=== PATIENT | female | born 1985 | race Two or more races ===

== ENCOUNTER 2020-01-04 15:15 | Emergency (ER) | payer MEDICAID ==
[~2020-01-04] VITALS: Ht 154.9 cm; Wt 68.0 kg
[~2020-01-04 15:15] MED LIST: NAPR-232 PO
[2020-01-04 16:01] LABS: BASOPHILS # (AUTO) 0.1 X10'3 (0-0.2); BASOPHILS % (AUTO) 0.9 % (0-1); EOSINOPHILS % (AUTO) 0.3 % (0-6); HEMATOCRIT 45.1 % (35.0-45.0); HEMOGLOBIN 15.3 g/dl (12.0-16.0); LYMPHOCYTES # (AUTO) 2.6 X10'3 (1.1-4.8); LYMPHOCYTES % (AUTO) 21.2 % (21-51); MEAN CORPUSCULAR HEMOGLOBIN 28.8 PG (27.0-31.0); MEAN CORPUSCULAR VOLUME 84.7 FL (78-98); MEAN PLATELET VOLUME 7.3 FL (7.4-10.4); MONOCYTES # (AUTO) 0.6 X10'3 (0-0.9); MONOCYTES % (AUTO) 4.9 % (2-12); NEUTROPHILS % (AUTO) 72.7 % (42-75); PLATELET COUNT 415 X10'3 (140-440); RED BLOOD COUNT 5.32 X10'6 (4.20-5.60); RED CELL DISTRIBUTION WIDTH 13.4 % (11.5-14.5); WHITE BLOOD COUNT 12.4 X10'3 (4.5-11.0)
[2020-01-04 16:16] LABS: ALANINE AMINOTRANSFERASE 28 U/L (12-78); ALBUMIN 4.1 G/DL (3.4-5.0); ALKALINE PHOSPHATASE 83 IU/L (46-116); ANION GAP 10 (8-16); ASPARTATE AMINO TRANSFERASE 22 U/L (10-37); BILIRUBIN,TOTAL 0.8 MG/DL (0.1-1.0); BLOOD UREA NITROGEN 14 MG/DL (7-18); BUN/CREATININE RATIO 18.9 (6.6-38.0); CALCIUM 9.3 MG/DL (8.5-10.1); CHLORIDE 102 MMOL/L (99-107); CREATININE 0.74 MG/DL (0.40-0.90); GLUCOSE 100 MG/DL (70-104); LIPASE 67 U/L (73-393); POTASSIUM 3.9 MMOL/L (3.5-5.1); SODIUM 137 MMOL/L (135-145); TOTAL CARBON DIOXIDE 24.9 MMOL/L (24-32); TOTAL PROTEIN 8.3 G/DL (6.4-8.2); eGFR 90 ML/MIN
[2020-01-04] MEDS ORDERED: pyridoxine 50mg tablet PO SCH (17:20)
[2020-01-04] MEDS ORDERED: ringers solution, lactated 1000ml IV soln IV ONE (17:20)
[2020-01-04 17:53] LABS: URINE HCG POSITIVE (NEG)
[2020-01-04 17:56] LABS: CLARITY,URINE CLOUDY (Clear); COLOR,URINE YELLOW (Yellow); GLUCOSE, URINE NEGATIVE (Neg); KETONES,URINE >=80 mg/dl (Neg); LEUKOCYTE ESTERASE ,URINE NEGATIVE (Neg); NITRITES, URINE NEGATIVE (Neg); OCCULT BLOOD,URINE NEGATIVE (Neg); PROTEIN,URINE TRACE mg/dl (Neg)
[2020-01-04 17:59] LABS: UA COLLECTION TYPE CLN CATCH MIDSTREAM
[2020-01-04 18:02] LABS: BACTERIA,URINE 1+ /HPF (Neg); MUCUS STRANDS FEW /LPF (Neg); RBC,URINE 0-2 /HPF (0-2); SQUAMOUS EPITHELIAL CELL,UR MANY /LPF (FEW)
--- NOTE | 2020-01-04 19:02 | NUR ---
Phoned lab and confirmed with Lilian that a recollected cath urine specimen was received. She reports the specimen was placed in the refridgerator by mistake and will be processed at this time.
[2020-01-04 19:08] LABS: CLARITY,URINE CLEAR (Clear); COLOR,URINE YELLOW (Yellow); GLUCOSE, URINE NEGATIVE (Neg); KETONES,URINE >=80 mg/dl (Neg); LEUKOCYTE ESTERASE ,URINE NEGATIVE (Neg); NITRITES, URINE NEGATIVE (Neg); OCCULT BLOOD,URINE TRACE-INTACT (Neg); PROTEIN,URINE NEGATIVE (Neg)
[2020-01-04 19:18] LABS: UA COLLECTION TYPE STRAIGHT CATH
[2020-01-04 19:19] LABS: BACTERIA,URINE FEW /HPF (Neg); MUCUS STRANDS FEW /LPF (Neg); RBC,URINE 0-2 /HPF (0-2); SQUAMOUS EPITHELIAL CELL,UR FEW /LPF (FEW); WBC,URINE 0-4 /HPF (0-4)
[2020-01-04] MEDS ORDERED: DOXY1TAB3 PO (20:30)
[2020-01-04 20:44] VITALS: BP 110/66
== END 2020-01-04 20:48 | disposition home or self-care (01) ==
LOC: ER 15:15
DX: O21.0 Mild hyperemesis gravidarum (principal); F15.10 Other stimulant abuse, uncomplicated; Z88.5 Allergy status to narcotic agent; Z79.899 Other long term (current) drug therapy
CPT/HCPCS: 36415; 80053; 81001; 81025; 83690; 85025; 96360; 96361; 99285; J7120

== ENCOUNTER 2020-05-04 21:41 | Emergency (ER) | payer MEDICAID ==
[~2020-05-04] VITALS: Ht 154.9 cm; Wt 77.3 kg
[~2020-05-04 21:41] MED LIST changes: +DOXY1TAB3 PO
[2020-05-04 21:48] VITALS: BP 131/88
[2020-05-04] MEDS ORDERED: penicillin V potassium 500mg tablet PO ONE (22:15)
[2020-05-04] MEDS ORDERED: PENI500T2 PO (22:16)
== END 2020-05-04 22:31 | disposition home or self-care (01) ==
LOC: ER 21:41
DX: K02.9 Dental caries, unspecified (principal); F15.90 Other stimulant use, unspecified, uncomplicated; Z88.8 Allergy status to other drugs, medicaments and biological substances; Z79.1 Long term (current) use of non-steroidal anti-inflammatories (NSAID); Z79.899 Other long term (current) drug therapy
CPT/HCPCS: 99283

== ENCOUNTER 2020-11-02 10:03 | Emergency (ER) | payer MEDICAID ==
[~2020-11-02] VITALS: Ht 154.9 cm; Wt 74.0 kg
[2020-11-02 10:18] VITALS: BP 129/86
[2020-11-02] MEDS ORDERED: CLIN-97 PO (12:54)
== END 2020-11-02 13:22 | disposition home or self-care (01) ==
LOC: ER 10:04
DX: H92.02 Otalgia, left ear (principal); K08.89 Other specified disorders of teeth and supporting structures; F17.200 Nicotine dependence, unspecified, uncomplicated; Z88.5 Allergy status to narcotic agent; Z79.899 Other long term (current) drug therapy
CPT/HCPCS: 99283

== ENCOUNTER 2021-01-05 17:11 | Emergency (ER) | payer MEDICAID ==
[~2021-01-05 17:11] MED LIST changes: +CLIN-97 PO
[2021-01-06] MEDS ORDERED: IBUP-1984 PO (09:32)
[2021-01-06] MEDS ORDERED: PENI500T2 PO (09:32)
== END 2021-01-05 18:51 | disposition left against medical advice (07) ==
LOC: ER 17:12
DX: K06.1 Gingival enlargement (principal); Z53.21 Procedure and treatment not carried out due to patient leaving prior to being seen by health care provider

== ENCOUNTER 2021-01-06 09:12 | Emergency (ER) | payer MEDICAID ==
[~2021-01-06] VITALS: Ht 154.9 cm; Wt 7.6 kg
[2021-01-06 09:30] VITALS: BP 124/85
[2021-01-06] MEDS ORDERED: PENI500T2 PO (09:32)
[2021-01-06] MEDS ORDERED: IBUP-1984 PO (09:32)
== END 2021-01-06 09:51 | disposition home or self-care (01) ==
LOC: ER 09:13
DX: K04.7 Periapical abscess without sinus (principal); K08.89 Other specified disorders of teeth and supporting structures; Z88.5 Allergy status to narcotic agent; Z79.2 Long term (current) use of antibiotics; Z79.899 Other long term (current) drug therapy
CPT/HCPCS: 99283

== ENCOUNTER 2021-01-21 15:54 | Emergency (ER) | payer MEDICAID ==
[~2021-01-21] VITALS: Ht 154.9 cm; Wt 71.0 kg
[2021-01-21 17:35] VITALS: BP 141/70
[2021-01-21] MEDS ORDERED: CLIN150C2 PO (17:59)
[2021-01-21] MEDS ORDERED: NAPR-996 PO (18:15)
[2021-01-21] MEDS ORDERED: clindamycin 150mg capsule PO ONE (18:25)
== END 2021-01-21 18:42 | disposition home or self-care (01) ==
LOC: ER 15:54
DX: K04.7 Periapical abscess without sinus (principal); K02.9 Dental caries, unspecified; K08.89 Other specified disorders of teeth and supporting structures; Z88.5 Allergy status to narcotic agent; Z79.2 Long term (current) use of antibiotics; Z79.899 Other long term (current) drug therapy
CPT/HCPCS: 99283

== ENCOUNTER 2021-05-02 04:49 | Emergency (ER) | payer MEDICAID ==
[~2021-05-02] VITALS: Ht 154.9 cm; Wt 74.2 kg
[~2021-05-02 04:49] MED LIST changes: +NAPR-996 PO
[2021-05-02 04:57] VITALS: BP 123/90
[2021-05-02] MEDS ORDERED: AMOX-117 PO (05:41)
[2021-05-02] MEDS ORDERED: IBUP-1984 PO (05:41)
[2021-05-02] MEDS ORDERED: amox tr/potassium clavulanate 875/125mg TAB PO ONE (05:45)
[2021-05-02] MEDS ORDERED: ibuprofen tablet 400 MG TABLET PO ONE (05:45)
== END 2021-05-02 06:03 | disposition home or self-care (01) ==
LOC: ER 04:51
DX: K04.7 Periapical abscess without sinus (principal); Z88.5 Allergy status to narcotic agent; Z79.899 Other long term (current) drug therapy
CPT/HCPCS: 99283

== ENCOUNTER 2021-11-16 20:57 | Emergency (ER) | payer MEDICAID ==
[~2021-11-16] VITALS: Ht 154.9 cm; Wt 78.6 kg
[2021-11-16 21:28] VITALS: BP 140/84
[2021-11-16] MEDS ORDERED: cyclobenzaprine 10mg tablet PO ONE (22:10)
[2021-11-16] MEDS ORDERED: ketorolac trometh inj. 60 MG/2 ML VIAL IM ONE (22:10)
[2021-11-16] MEDS ORDERED: IBUP-1986 PO (22:19)
[2021-11-16] MEDS ORDERED: CYCL-1 PO (22:19)
== END 2021-11-16 22:27 | disposition home or self-care (01) ==
LOC: ER 20:57
DX: M54.41 Lumbago with sciatica, right side (principal); Z88.5 Allergy status to narcotic agent; Z79.899 Other long term (current) drug therapy; Z79.1 Long term (current) use of non-steroidal anti-inflammatories (NSAID); Z79.2 Long term (current) use of antibiotics
CPT/HCPCS: 96372; 99283; J1885

== ENCOUNTER 2022-02-21 13:40 | Emergency (ER) | payer MEDICAID ==
[~2022-02-21] VITALS: Ht 154.9 cm; Wt 63.2 kg
[~2022-02-21 13:40] MED LIST changes: +CYCL-1 PO; +IBUP-1986 PO
[2022-02-21 13:48] VITALS: BP 130/85
[2022-02-21] MEDS ORDERED: ketorolac trometh inj. 60 MG/2 ML VIAL IM ONE (15:40)
== END 2022-02-21 16:18 | disposition home or self-care (01) ==
LOC: ER 13:41
DX: M54.41 Lumbago with sciatica, right side (principal); Z88.5 Allergy status to narcotic agent; Z79.2 Long term (current) use of antibiotics; Z79.899 Other long term (current) drug therapy
CPT/HCPCS: 96372; 99283; J1885

== ENCOUNTER 2022-03-05 12:32 | Emergency (ER) | payer MEDICAID ==
[~2022-03-05] VITALS: Ht 154.9 cm; Wt 81.4 kg
[2022-03-05 13:20] VITALS: BP 125/64
[2022-03-05] MEDS ORDERED: ketorolac tromethamine 15mg/ml inj. IM ONE (14:25)
== END 2022-03-05 15:05 | disposition home or self-care (01) ==
LOC: ER 12:33
DX: M54.2 Cervicalgia (principal); Z88.5 Allergy status to narcotic agent; Z79.899 Other long term (current) drug therapy; Z79.1 Long term (current) use of non-steroidal anti-inflammatories (NSAID)
CPT/HCPCS: 96372; 99283; J1885

== ENCOUNTER 2022-03-20 15:03 | Emergency (ER) | payer MEDICAID ==
[~2022-03-20] VITALS: Ht 154.9 cm; Wt 83.0 kg
[2022-03-20 15:08] VITALS: BP 131/70
[2022-03-20] MEDS ORDERED: ketorolac trometh. 30mg/ml inj. IM ONE (16:45)
[2022-03-20] MEDS ORDERED: IBUP-1986 PO (16:50)
== END 2022-03-20 17:17 | disposition home or self-care (01) ==
LOC: ER 15:04
DX: M62.830 Muscle spasm of back (principal); Z88.5 Allergy status to narcotic agent
CPT/HCPCS: 96372; 99283; J1885

== ENCOUNTER 2022-04-28 19:45 | Emergency (ER) | payer MEDICAID ==
[~2022-04-28] VITALS: Ht 154.9 cm; Wt 85.6 kg
[2022-04-28 20:02] VITALS: BP 152/89
[2022-04-28] MEDS ORDERED: NAPR-56 PO (21:20)
[2022-04-28] MEDS ORDERED: naproxen 500mg tablet PO ONE (21:20)
[2022-04-28] MEDS ORDERED: penicillin V potassium 500mg tablet PO ONE (21:20)
[2022-04-28] MEDS ORDERED: PENI250T2 PO (21:20)
== END 2022-04-28 21:52 | disposition home or self-care (01) ==
LOC: ER 19:45
DX: K04.7 Periapical abscess without sinus (principal); Z88.5 Allergy status to narcotic agent; Z79.899 Other long term (current) drug therapy
CPT/HCPCS: 99283

== ENCOUNTER 2022-07-22 19:53 | Emergency (ER) | payer MEDICAID ==
[~2022-07-22] VITALS: Ht 154.9 cm; Wt 88.6 kg
[2022-07-22 19:59] VITALS: BP 165/91
[2022-07-22] MEDS ORDERED: AMOX-580 PO (20:54)
[2022-07-22] MEDS ORDERED: amox tr/potassium clavulanate 875/125mg TAB PO ONE (20:55)
== END 2022-07-22 21:01 | disposition home or self-care (01) ==
LOC: ER 19:54
DX: K04.7 Periapical abscess without sinus (principal); K02.9 Dental caries, unspecified; Z88.8 Allergy status to other drugs, medicaments and biological substances; Z79.2 Long term (current) use of antibiotics; Z79.899 Other long term (current) drug therapy
CPT/HCPCS: 99283

== ENCOUNTER 2022-09-06 17:25 | Emergency (ER) | payer MEDICAID ==
[2022-09-06 17:48] VITALS: BP 158/84
[2022-09-06] MEDS ORDERED: AMOX-117 PO (19:46)
[2022-09-06] MEDS ORDERED: HYDR-3973 PO (19:46)
== END 2022-09-06 19:53 | disposition home or self-care (01) ==
LOC: ER 17:26
DX: H65.92 Unspecified nonsuppurative otitis media, left ear (principal); K04.7 Periapical abscess without sinus; Z88.5 Allergy status to narcotic agent
CPT/HCPCS: 99283

== ENCOUNTER 2022-11-10 10:09 | Emergency (ER) | payer MEDICAID ==
[~2022-11-10] VITALS: Ht 154.9 cm; Wt 80.2 kg
[2022-11-10 12:18] VITALS: BP 146/91; PULSE 106; RESP 16; TEMP 97; O2SAT 97
[2022-11-10] MEDS ORDERED: CHLO118M PO (12:56)
[2022-11-10] MEDS ORDERED: CLIN-97 PO (12:56)
[2022-11-10] MEDS ORDERED: NAPR-56 PO (12:57)
== END 2022-11-10 13:26 | disposition home or self-care (01) ==
LOC: ER 10:10
DX: K02.9 Dental caries, unspecified (principal); Z88.5 Allergy status to narcotic agent; Z79.899 Other long term (current) drug therapy
CPT/HCPCS: 99283

== ENCOUNTER 2022-12-25 17:10 | Emergency (ER) | payer MEDICAID ==
[~2022-12-25] VITALS: Ht 154.9 cm; Wt 80.2 kg
[~2022-12-25 17:10] MED LIST changes: +CHLO118M PO
[2022-12-25 17:15] VITALS: TEMP 96.8
[2022-12-25 17:29] VITALS: RESP 17
--- NOTE | 2022-12-25 17:45 | NUR ---
I have reviewed and agree with all interventions, assessments performed and documented by OFFICE WORKER
[2022-12-25] MEDS ORDERED: ketorolac trometh inj. 60 MG/2 ML VIAL IM ONE (19:00)
[2022-12-25] MEDS ORDERED: DOXY150T5 PO ×2 (19:00)
[2022-12-25] MEDS ORDERED: NAPR-56 PO (19:00)
[2022-12-25 19:14] VITALS: BP 144/87; PULSE 100; O2SAT 100
[2022-12-26] MEDS ORDERED: DOXY-411 PO (11:03)
== END 2022-12-25 19:17 | disposition home or self-care (01) ==
LOC: ER 17:10
DX: K04.7 Periapical abscess without sinus (principal)
CPT/HCPCS: 96372; 99283; J1885

== ENCOUNTER 2023-01-29 11:17 | Emergency (ER) | payer MEDICAID ==
[~2023-01-29] VITALS: Ht 154.9 cm; Wt 78.7 kg
[2023-01-29 11:22] VITALS: BP 129/87; PULSE 105; TEMP 97.9; O2SAT 100
[2023-01-29] MEDS ORDERED: ketorolac tromethamine 15mg/ml inj. IM ONE (11:55)
[2023-01-29 12:11] VITALS: RESP 17
[2023-01-29] MEDS ORDERED: AMOX-580 PO (12:18)
== END 2023-01-29 12:21 | disposition home or self-care (01) ==
LOC: ER 11:17
DX: K04.7 Periapical abscess without sinus (principal); Z88.5 Allergy status to narcotic agent; Z79.899 Other long term (current) drug therapy
CPT/HCPCS: 96372; 99283; J1885

== ENCOUNTER 2023-03-06 22:13 | Emergency (ER) | payer MEDICAID ==
[~2023-03-06] VITALS: Ht 154.9 cm; Wt 79.9 kg
[2023-03-06] MEDS ORDERED: AMOX-100 PO (22:56)
[2023-03-06 23:08] VITALS: BP 129/70; PULSE 98; RESP 16; TEMP 98.9; O2SAT 98
== END 2023-03-06 23:09 | disposition home or self-care (01) ==
LOC: ER 22:14
DX: K08.89 Other specified disorders of teeth and supporting structures (principal); H92.02 Otalgia, left ear; K02.9 Dental caries, unspecified; Z88.8 Allergy status to other drugs, medicaments and biological substances; Z79.2 Long term (current) use of antibiotics; Z79.899 Other long term (current) drug therapy
CPT/HCPCS: 99283

== ENCOUNTER 2023-06-26 18:24 | Emergency (ER) | payer MEDICAID ==
[~2023-06-26] VITALS: Ht 154.9 cm; Wt 80.0 kg
[2023-06-26 18:37] VITALS: BP 122/82; PULSE 90; TEMP 98.4; O2SAT 99
[2023-06-26 20:32] VITALS: RESP 9
[2023-06-26] MEDS: ketorolac tromethamine 15mg/ml inj. IM ONE (20:32)
== END 2023-06-26 20:56 | disposition home or self-care (01) ==
LOC: ER 18:24
DX: M54.42 Lumbago with sciatica, left side (principal); Z88.5 Allergy status to narcotic agent; Z79.899 Other long term (current) drug therapy; Z79.2 Long term (current) use of antibiotics
CPT/HCPCS: 96372; 99283; J1885

== ENCOUNTER 2023-07-04 12:17 | Outpatient (CLI) | payer MEDICAID | END 2023-07-04 23:59 | disposition home or self-care (01) | LOC: RAD 12:17 | PROVIDERS: ATTEND Family Medicine | DX: M25.562 Pain in left knee (principal) | CPT/HCPCS: 73564 ==

== ENCOUNTER 2023-09-17 10:11 | Emergency (ER) | payer MEDICAID ==
[~2023-09-17] VITALS: Ht 154.9 cm; Wt 78.8 kg
[2023-09-17] MEDS: ketorolac trometh. 30mg/ml inj. IM ONE (11:12)
[2023-09-17] MEDS ORDERED: AMOX500C7 PO (11:24)
[2023-09-17 11:29] VITALS: BP 128/84; PULSE 87; RESP 15; TEMP 97.9; O2SAT 99
== END 2023-09-17 11:31 | disposition home or self-care (01) ==
LOC: ER 10:11
DX: K02.9 Dental caries, unspecified (principal); K04.7 Periapical abscess without sinus; Z88.5 Allergy status to narcotic agent; Z79.2 Long term (current) use of antibiotics; Z79.1 Long term (current) use of non-steroidal anti-inflammatories (NSAID); Z79.899 Other long term (current) drug therapy
CPT/HCPCS: 96372; 99283; J1885

== ENCOUNTER 2023-11-25 10:39 | Emergency (ER) | payer MEDICAID ==
[~2023-11-25] VITALS: Ht 154.9 cm; Wt 78.5 kg
[2023-11-25 10:43] VITALS: TEMP 98.4
[2023-11-25 11:15] LABS: STREP A SCREEN POSITIVE (Neg)
[2023-11-25] MEDS ORDERED: PENI500T2 PO (11:39)
[2023-11-25 11:46] VITALS: BP 120/65; PULSE 72; RESP 16; O2SAT 99
== END 2023-11-25 11:47 | disposition home or self-care (01) ==
LOC: ER 10:39
DX: J02.0 Streptococcal pharyngitis (principal); Z88.5 Allergy status to narcotic agent; Z79.899 Other long term (current) drug therapy; Z79.2 Long term (current) use of antibiotics; Z79.1 Long term (current) use of non-steroidal anti-inflammatories (NSAID)
CPT/HCPCS: 87880; 99283

== ENCOUNTER 2024-01-08 07:30 | Emergency (ER) | payer MEDICAID ==
[~2024-01-08] VITALS: Ht 154.9 cm; Wt 79.3 kg
[2024-01-08 11:16] LABS: STREP A SCREEN POSITIVE (Neg)
[2024-01-08] MEDS ORDERED: AMOX500C4 PO (11:23)
[2024-01-08 11:31] VITALS: BP 135/86; PULSE 90; RESP 16; TEMP 98; O2SAT 98
== END 2024-01-08 11:35 | disposition home or self-care (01) ==
LOC: ER 07:31
DX: J02.0 Streptococcal pharyngitis (principal); Z79.899 Other long term (current) drug therapy; Z88.5 Allergy status to narcotic agent; Z79.2 Long term (current) use of antibiotics; H92.02 Otalgia, left ear
CPT/HCPCS: 87880; 99283

== ENCOUNTER 2024-03-21 13:34 | Emergency (ER) | payer MEDICAID ==
[~2024-03-21] VITALS: Ht 154.9 cm; Wt 82.8 kg
[2024-03-21 13:43] VITALS: BP 151/83; PULSE 109; RESP 18; TEMP 97.8; O2SAT 100
[2024-03-21] MEDS ORDERED: AMOX-580 PO (14:15)
[2024-03-21] MEDS: amox tr/potassium clavulanate 875/125mg TAB PO ONE (14:34)
[2024-03-21] MEDS: ketorolac trometh 30MG/ML vial 30 MG/ML VIAL IM ONE (14:34)
== END 2024-03-21 14:39 | disposition home or self-care (01) ==
LOC: ER 13:35
DX: K65.1 Peritoneal abscess (principal); Z88.5 Allergy status to narcotic agent; K02.9 Dental caries, unspecified
CPT/HCPCS: 96372; 99283; J1885

== ENCOUNTER 2024-04-15 08:34 | Emergency (ER) | payer MEDICAID ==
[~2024-04-15] VITALS: Ht 154.9 cm; Wt 82.2 kg
[~2024-04-15 08:34] MED LIST changes: +NAPR-1168 PO; -NAPR-996 PO
[2024-04-15 08:35] VITALS: BP 132/82; PULSE 108; O2SAT 100
[2024-04-15 10:22] VITALS: RESP 16
[2024-04-15] MEDS: ketorolac trometh 30MG/ML vial 30 MG/ML VIAL IM ONE (10:22)
[2024-04-15 10:26] VITALS: TEMP 98.2
== END 2024-04-15 10:30 | disposition home or self-care (01) ==
LOC: ER 08:35
DX: M54.41 Lumbago with sciatica, right side (principal); G89.29 Other chronic pain; Z88.5 Allergy status to narcotic agent; Z79.899 Other long term (current) drug therapy
CPT/HCPCS: 96372; 99283; J1885

== ENCOUNTER 2024-07-04 09:35 | Emergency (ER) | payer MEDICAID ==
[~2024-07-04] VITALS: Ht 154.9 cm; Wt 80.4 kg
[2024-07-04 09:38] VITALS: BP 130/86; PULSE 111; TEMP 97.1; O2SAT 100
[2024-07-04] MEDS ORDERED: PRED20TA PO (10:08)
--- NOTE | 2024-07-04 10:08 | Physician Documentation ---
History of Present Illness ~ Chief Complaint: Back Pain Stated Complaint: BACK PAIN Time Seen by MD: 09:48 OK to notify your PCP?: Yes Primary Medical Doctor: [facility] Source: patient Mode of Arrival: POV Exam Limitations: no limitations HPI [age] year old female who comes in complaining of exacerbation of her sciatica pain. This is an ongoing issue for this patient she states she typically goes to a chiropractor however she can not get in his hit a chiropractor until next week. She states Toradol shots purely help her pain and she is requesting a Toradol shot. She states the pain starts in her left mid buttocks and radiates down the left posterior leg. She denies denies saddle paresthesias, urinary retention or loss of bowel control. Medication Reconciliation Allergies: Coded Allergies: codeine (Verified Allergy, Unknown, 07/04/24) states her heart rate drops Scheduled Chlorhexidine Gluconate (Peridex), 15-30 ML PO Q8H Clindamycin HCL* (Clindamycin HCL*), 1 CAP PO Q6H Clindamycin HCL* (Clindamycin HCL*), 1 CAP PO Q8H Cyclobenzaprine* (Cyclobenzaprine*), 1 TAB PO Q8H Doxylamine/Pyridoxine HCl (Diclegis Dr 10-10 mg Tablet), 2 TAB PO HS Ibuprofen (Ibuprofen), 1 TAB PO Q8H Ibuprofen (Ibuprofen), 1 TAB PO Q8H Naproxen (Naprosyn), 500 MG PO Q12H PRN PAIN Naproxen (Naproxen), 1 TAB PO Q12H Past Medical History Past Medical History: No Pertinent History Past Surgical History: no surgical history Patient History: Patient reports no known family medical history. Alcohol Use: None Drug Use: none Lives with: Family Lives In: Home Occupation: employed Physical Exam Physical Exam Vital Signs: Temperature: 97.1, Source: Temporal, Heart Rate: 111, Respiratory Rate: 18, BP: 130/86, Pulse Oximetry: 100, Weight: 80.400 Oxygen Flow Rate: 0 Pulse Oximetry Reflects: adequate oxygenation General Appearance: alert, WD/WN, no apparent distress Back There was no tenderness to palpation of the low lumbar spine however there is tenderness to palpation over the left sciatic notch. Positive left straight leg raise at 45�. DTR - Lower Extremities: 2+ knee (L) Progress Results/Orders Results/Orders Orders - RUFUS VELÁSQUEZ Ketorolac Trometh 15mg/Ml Vial (Toradol (07/04/24 10:05) Vital Signs 07/04/24 09:38 Temp 97.1 Pulse 111 Resp 18 B/P (MAP) 130/86 Pulse Ox 100 O2 Flow Rate 0 Medical Decision Making Findings The patient has a long standing ongoing issue with the sciatica. She goes to a chiropractor and gets Toradol shots. I told the patient we will give her a Toradol shot with a probably wear off and a couple of hours. I offered a burst dose of prednisone at 60 mg once a day for five days when she states she will take. I instructed her to follow up with the primary care physician and I suggested a referral to a orthopedic spine or neurosurgeon as opposed to a chiropractor. Patient has not no signs of cauda equina syndrome or focal neuro deficits. Differential Diagnosis Sciatica. Radicular pain. Lumbosacral radiculopathy. Departure Disposition: HOME / SELF CARE / HOMELESS Impression: Primary Impression: Sciatica Condition: Stable Discharge Instructions: Sciatica Additional Instructions: Take the steroid medication as we discussed once a day for five days earlier in the day. Follow up with the primary care physician for recheck in the next one or two days. Return to the ER for any worsening or concerning symptoms. Referrals: NO PRIMARY CARE PROVIDER (PCP) Prescriptions Prednisone* (Prednisone*) 20 Mg Tablet 3 TAB PO DAILY, #15 TAB Prov: RUFUS VELÁSQUEZ 07/04/24 Signature Scribe Signature: No scribe Attestation: The note accurately reflects work and decisions made by me.Rufus MABRY 07/04/24 10:08 RUFUS VELÁSQUEZ July 04, 2024 10:08
[2024-07-04 10:24] VITALS: RESP 18
[2024-07-04] MEDS: ketorolac trometh 30MG/ML vial 30 MG/ML VIAL IM ONE (10:24)
== END 2024-07-04 10:30 | disposition home or self-care (01) ==
LOC: ER 09:35
DX: M54.32 Sciatica, left side (principal); Z88.5 Allergy status to narcotic agent; Z79.899 Other long term (current) drug therapy
CPT/HCPCS: 96372; 99283; J1885

== ENCOUNTER 2024-07-26 20:14 | Emergency (ER) | payer MEDICAID ==
[~2024-07-26] VITALS: Ht 154.9 cm; Wt 80.1 kg
[~2024-07-26 20:14] MED LIST changes: +PRED20TA PO
[2024-07-26 20:19] VITALS: BP 139/86; PULSE 102; TEMP 98; O2SAT 98
[2024-07-26] MEDS ORDERED: IBUP-1986 PO (21:35)
[2024-07-26] MEDS ORDERED: LIDO700A32 TOP (21:35)
--- NOTE | 2024-07-26 21:35 | Physician Documentation ---
History of Present Illness ~ Chief Complaint: Back Pain Stated Complaint: BACK PAIN Time Seen by MD: 21:02 [facility] Doctor[facility] This is a 39-year-old female with history of left-sided sciatica a presents with worsening left-sided low back pain and hip pain with radiation to her left leg consistent with previous sciatic symptoms, patient is requesting Toradol injection as her pain has worsened and Toradol has helped in the past. Patient reports she has seen her primary care provider in his awaiting a chiropractic and physical therapy appointment for chronic low back pain. Patient reports he has further follow up with her primary care provider in the next two weeks. Patient reports no new weakness or numbness in her legs, no saddle paresthesia, no fever, no central back pain, and no loss of bowel or bladder control. Patient reports no other acute symptoms or concerns. Medication Reconciliation Allergies: Coded Allergies: codeine (Verified Allergy, Unknown, 07/04/24) states her heart rate drops Scheduled Chlorhexidine Gluconate (Peridex), 15-30 ML PO Q8H Clindamycin HCL* (Clindamycin HCL*), 1 CAP PO Q6H Clindamycin HCL* (Clindamycin HCL*), 1 CAP PO Q8H Cyclobenzaprine* (Cyclobenzaprine*), 1 TAB PO Q8H Doxylamine/Pyridoxine HCl (Diclegis Dr 10-10 mg Tablet), 2 TAB PO HS Ibuprofen (Ibuprofen), 1 TAB PO Q8H Ibuprofen (Ibuprofen), 1 TAB PO Q8H Ibuprofen (Ibuprofen), 1 TAB PO Q8H Lidocaine (Lidoderm), 1 PATCH TOP DAILY Naproxen (Naprosyn), 500 MG PO Q12H PRN PAIN Naproxen (Naproxen), 1 TAB PO Q12H Prednisone* (Prednisone*), 3 TAB PO DAILY Past Medical History Past Medical History: No Pertinent History Past Surgical History: no surgical history Patient History: Patient reports no known family medical history. Alcohol Use: None Drug Use: none Lives with: Family Lives In: Home Occupation: employed Review of Systems ROS Left-sided lumbar back pain with radiation to left flank as stated above in the HPI, otherwise all systems are reviewed and negative. Physical Exam Physical Exam Vital Signs: Temperature: 98.0, Source: Temporal, Heart Rate: 102, Respiratory Rate: 16, BP: 139/86, Pulse Oximetry: 98, Weight: 80.100 Oxygen Flow Rate: 0 Physical Exam VITALS: Reviewed and as above. GENERAL: Alert, nontoxic appearing, no apparent distress. RESPIRATORY: No increased work of breathing, no respiratory distress, speaking in full clear sentences BACK: No midline tenderness, left lumbar back into left hip mildly tender to palpation Progress Results/Orders Results/Orders Completed Orders - KYLEE ALTAMIRANO [employer] Ketorolac Trometh 15mg/Ml Vial (Toradol (07/26/24 21:40) Lidocaine 5% Patch (Lidoderm 5% Patch) (07/26/24 21:40) Medications Received in ER Medications (Trade) Dose Ordered Sig/Sarah Route PRN Reason Start Time Stop Time Status Last Admin Dose Admin (Toradol injection) 15 mg ONCE ONCE IM 07/26/24 21:40 07/26/24 21:43 DC 07/26/24 21:47 15 MG (Lidoderm 5% Patch) 1 patch ONCE ONCE TP 07/26/24 21:40 07/26/24 21:41 DC 07/26/24 21:47 1 PATCH Vital Signs 07/26/24 07/26/24 20:19 21:47 Temp 98.0 Pulse 102 Resp 16 17 B/P (MAP) 139/86 Pulse Ox 98 O2 Flow Rate 0 Medical Decision Making Findings This is an otherwise healthy, well appearing 39-year-old female with history of chronic left-sided low back pain presenting with increased left lower back pain. Patients does not have any high-risk features on history recent rauma, IVDA, cancer, significant weight loss or history of TB, and the patient has a normal neurologic exam withoutfever, severe or progressive neurologic deficits, new or worsening urinary retention, urinary/stool incontinence or decreased perineal sensation; therefore imaging was not indicated in the ED. I doubt spinal fracture, epidural hematoma, epidural abscess, unstable spinal pathology, emerg ent renal or aortic pathology, or spinal cord compression. Additionally it is reassuring patient force the this is consistent with her typical sciatic pain pattern, patient reports pain is typically well controlled with non opioid medications and a injection of Toradol was ordered. Patient has follow up with primary care provider and physical therapy scheduled. Upon discharge, the patients pain was controlled, and the patient was ambulatory without a risk of falling. Return precautions were discussed including worsening pain, new/worsening weakness/numbness, difficulty urinating, or incontinence. Differential Dx:Considerations: Include: Appendicitis, DJD, Fracture, Musculoskeletal pain, Strain, Urolithiasis, Other (Cauda equina, spinal injury, spinal epidural abscess) Departure Disposition: HOME / SELF CARE / HOMELESS Impression: Primary Impression: Low back pain Qualified Codes: M54.42 - Lumbago with sciatica, left side; G89.29 - Other chronic pain Condition: Improved Discharge Instructions: Chronic Back Pain Additional Instructions: Please take the high-dose ibuprofen as needed for low back pain up to 3 times a day, take this medication with food. Do not take ibuprofen for the next 12 hours he has you received a Toradol injection in the emergency department which replaces ibuprofen, naproxen, and other NSAIDs. Use the prescribed lidocaine patches as needed for back pain, you may wear please patches up to 12 hours at a time though allow least 12 hours between applications in do not apply heat packs over lidocaine patches. Follow up as scheduled with chiropractor, physical therapy, and primary care. Please return to the emergency department for any new or worsening concerning symptoms including but not limited to new numbness or weakness in your legs or groin, loss of bowel or bladder control, or for worsening back pain. Referrals: NO PRIMARY CARE PROVIDER (PCP) Prescriptions Ibuprofen (Ibuprofen) 800 Mg Tablet 1 TAB PO Q8H for pain for 10 Days, #30 TAB 0 Refills Prov: KYLEE ALTAMIRANO 07/26/24 Lidocaine (Lidoderm) 5 % Adh..patch 1 PATCH TOP DAILY for 10 Days, #10 PATCH 0 Refills may wear up to 12 hours Prov: KYLEE ALTAMIRANO 07/26/24 Education Educated: Patient Educated regarding: diagnosis, treatment, prognosis, need for follow up Signature Scribe Signature: No scribe Attestation: The note accurately reflects work and decisions made by me.SARAY Rashid 07/27/24 02:39 KYLEE ALTAMIRANO July 26, 2024 21:35
[2024-07-26 21:47] VITALS: RESP 17
[2024-07-26] MEDS: ketorolac trometh 15mg/ml vial 15 MG/ML ML IM ONE (21:47)
[2024-07-26] MEDS: LIDOcaine 5% patch TP ONE (21:47)
== END 2024-07-26 21:50 | disposition home or self-care (01) ==
LOC: ER 20:15
DX: G89.29 Other chronic pain (principal); M54.50 Low back pain, unspecified; Z88.5 Allergy status to narcotic agent; Z79.899 Other long term (current) drug therapy
CPT/HCPCS: 96372; 99283; J1885

== ENCOUNTER 2024-09-16 06:31 | Emergency (ER) | payer MEDICAID ==
[~2024-09-16] VITALS: Ht 154.9 cm; Wt 81.0 kg
[~2024-09-16 06:31] MED LIST changes: +LIDO-52 TOP; -PRED20TA PO
--- NOTE | 2024-09-16 07:14 | Physician Documentation ---
History of Present Illness ~ Chief Complaint: Leg Pain Stated Complaint: LEG PAIN Time Seen by MD: 07:08 Primary Medical Doctor: [facility] HPI 39 yof h/o long standing sciatic nerve pain on left p/w typical leg pain. Requesting toradol shot. She sees PT already and thinks she overdid it yesterday at work. No fevers, no weakness no bowel or bladder dysfunction or perineal numbness Tetanus witin 5 years: Yes Medication Reconciliation Allergies: Coded Allergies: codeine (Verified Allergy, Unknown, 07/04/24) states her heart rate drops Scheduled Chlorhexidine Gluconate (Peridex), 15-30 ML PO Q8H Clindamycin HCL* (Clindamycin HCL*), 1 CAP PO Q6H Clindamycin HCL* (Clindamycin HCL*), 1 CAP PO Q8H Cyclobenzaprine* (Cyclobenzaprine*), 1 TAB PO Q8H Doxylamine/Pyridoxine HCl (Diclegis Dr 10-10 mg Tablet), 2 TAB PO HS Ibuprofen (Ibuprofen), 1 TAB PO Q8H Ibuprofen (Ibuprofen), 1 TAB PO Q8H Ibuprofen (Ibuprofen), 1 TAB PO Q8H Lidocaine (Lidoderm), 1 PATCH TOP DAILY Naproxen (Naprosyn), 500 MG PO Q12H PRN PAIN Naproxen (Naproxen), 1 TAB PO Q12H Past Medical History Past Medical History: No Pertinent History Past Surgical History: no surgical history Patient History: Patient reports no known family medical history. Alcohol Use: None Drug Use: none Lives with: Family Lives In: Home Occupation: employed Review of Systems All Other Systems at this time: Reviewed and Negative Physical Exam Vital Signs: RN Vital Signs have been reviewed: Yes, Temperature: 97.9, Source: Temporal, Heart Rate: 106, Respiratory Rate: 15, BP: 135/83, Pulse Oximetry: 99, Weight: 81.000 Oxygen Flow Rate: 0 Physical Exam well appearing no distress awake alert oriented no midline spine ttp tenderness left lateral thigh and buttocks +straight leg raise 5/5 hip flexion bilaterally normal gait Progress Results/Orders Results/Orders Orders - MARIO FRANKLIN MD Ketorolac Trometh 30mg/Ml Vial (Toradol (09/16/24 07:10) Vital Signs 09/16/24 09/16/24 06:38 07:04 Temp 97.9 97.9 Pulse 115 106 Resp 16 15 B/P (MAP) 128/87 135/83 (100) Pulse Ox 100 99 O2 Flow Rate 0 0 Departure Disposition: 01 HOME / SELF CARE / HOMELESS Impression: Primary Impression: Sciatica Qualified Codes: M54.32 - Sciatica, left side Additional Impression Text typical sciatic pain for patient. wants toradol. benign exam and vitals Referrals: NO PRIMARY CARE PROVIDER (PCP) Signature Scribe Signature: na Attestation: MARIO Rosario MD Sep 16, 2024 07:14
[2024-09-16] MEDS: ketorolac trometh 30MG/ML vial 30 MG/ML VIAL IM ONE (07:21)
[2024-09-16 07:25] VITALS: BP 135/83; PULSE 104; RESP 16; TEMP 97.9; O2SAT 100
== END 2024-09-16 07:28 | disposition home or self-care (01) ==
LOC: ER 06:32
DX: M54.32 Sciatica, left side (principal); Z88.5 Allergy status to narcotic agent
CPT/HCPCS: 96372; 99283; J1885

== ENCOUNTER 2024-10-12 08:28 | Emergency (ER) | payer MEDICAID ==
[~2024-10-12 08:28] MED LIST changes: +CLIN-224 PO; -CLIN-97 PO
--- NOTE | 2024-10-12 08:43 | Physician Documentation ---
History of Present Illness ~ Stated Complaint: EAR PAIN Time Seen by MD: 08:34 Primary Medical Doctor: [facility] This is a 39-year-old female who presents to the emergency department with bilateral ear pain, right worse than the left. She denies chills or fever, chest pain or shortness of breath, nausea or vomiting. She does note a history of recurrent ear infections since childhood. Medication Reconciliation Allergies: Coded Allergies: codeine (Verified Allergy, Unknown, 07/04/24) states her heart rate drops Scheduled Amox Tr/Potassium Clavulanate 875/125 MG (Augmentin 875/125 MG), 1 TAB PO BID Chlorhexidine Gluconate (Peridex), 15-30 ML PO Q8H Clindamycin HCL* (Clindamycin HCL*), 1 CAP PO Q6H Clindamycin HCL* (Clindamycin HCL*), 1 CAP PO Q8H Cyclobenzaprine* (Cyclobenzaprine*), 1 TAB PO Q8H Doxylamine/Pyridoxine HCl (Diclegis Dr 10-10 mg Tablet), 2 TAB PO HS Ibuprofen (Ibuprofen), 1 TAB PO Q8H Ibuprofen (Ibuprofen), 1 TAB PO Q8H Ibuprofen (Ibuprofen), 1 TAB PO Q8H Lidocaine (Lidoderm), 1 PATCH TOP DAILY Naproxen (Naprosyn), 500 MG PO Q12H PRN PAIN Naproxen (Naproxen), 1 TAB PO Q12H Past Medical History Past Medical History: No Pertinent History Past Surgical History: no surgical history Patient History: Patient reports no known family medical history. Alcohol Use: None Drug Use: none Lives with: Family Lives In: Home Occupation: employed Review of Systems ROS As stated above in the HPI, otherwise all systems are reviewed and negative. Physical Exam Physical Exam General: Alert, no apparent distress. HEENT: PERRL, EOMI, no injection, moist mucous membranes. Both ear canals are clear. Both tympanic membranes are erythematous and bulging, right worse than left. No perforation. No mastoid tenderness Neck: Full range of motion. Respiratory: Lungs clear, no respiratory distress. Chest: No accessory muscle use. Cardiovascular: Regular rate and rhythm, no murmurs. Gastrointestinal: Soft, nontender, nondistended. Bowels sounds present. Extremities: Normal range of motion, no deformity. Neurologic: Oriented x4. Psychiatric: Normal mood and affect. Skin: Normal color, warm and dry. No edema, no ecchymosis. Progress Results/Orders Results/Orders Completed Orders - SEBAS WOODS NP Ketorolac Trometh 30mg/Ml Vial (Toradol (10/12/24 09:30) Vital Signs 10/12/24 08:42 Temp 97.5 Pulse 127 Resp 18 B/P (MAP) 173/87 Pulse Ox 100 O2 Flow Rate 0 Medical Decision Making Ear Diff. Dx: Considerations: Include: Abrasion, Cerumen impaction, Foreign body, Otitis externa, Barotrauma, Otitis media, Perforation, Referred pain- dental, Referred pain-pharyngitis, Referred pain-sinusitis, Referred pain-TMJ syn., Tympanic Membrane Injury Additional Comment Well-appearing 39-year-old female with bilateral otitis media. History of same. We will be treated with Augmentin. Was given Toradol 30 mg IM in the ER. Is to return if worse. Departure Time of Disposition: 09:27 Disposition: 01 HOME / SELF CARE / HOMELESS Impression: Primary Impression: Acute right otitis media Discharge Instructions: Otitis Media, Adult Additional Instructions: The antibiotics as prescribed. Use Tylenol or ibuprofen per [id number] label instructions as needed for pain. Return if worse. Follow up with the primary care provider next week. Referrals: NO PRIMARY CARE PROVIDER (PCP) Prescriptions Amox Tr/Potassium Clavulanate 875/125 MG (Augmentin 875/125 MG) 875 Mg-125 Mg Tablet 1 TAB PO BID, #14 TAB Prov: SEBAS WOODS NP 10/12/24 Education Educated: Patient Educated regarding: diagnosis, treatment, prognosis, need for follow up Signature Scribe Signature: x Attestation: The note accurately reflects work and decisions made by me.Sebas Woods - JALEEL 09:40 SEBAS WOODS NP Oct 12, 2024 08:43
[2024-10-12] MEDS ORDERED: AMOX-580 PO (09:27)
[2024-10-12] MEDS: ketorolac trometh 30MG/ML vial 30 MG/ML VIAL IM ONE (09:43)
[2024-10-12 09:51] VITALS: BP 165/79; PULSE 90; RESP 16; TEMP 97.5; O2SAT 99
== END 2024-10-12 09:53 | disposition home or self-care (01) ==
LOC: ER 08:28
DX: H66.91 Otitis media, unspecified, right ear (principal); Z88.5 Allergy status to narcotic agent; Z79.899 Other long term (current) drug therapy
CPT/HCPCS: 96372; 99283; J1885

== ENCOUNTER 2025-01-18 07:03 | Emergency (ER) | payer MEDICAID ==
[~2025-01-18] VITALS: Ht 154.9 cm; Wt 89.1 kg
[2025-01-18 07:05] VITALS: TEMP 98.3
--- NOTE | 2025-01-18 07:15 | Physician Documentation ---
HPI ~ General Chief Complaint: Tooth Problem Stated Complaint: TOOTH PAIN Time Seen by MD: 07:13 Primary Medical Doctor: [facility] History of Present Illness HPI Comment 39 yo F presenting with dental pain. She tells me that she has multiple broken teeth, and is waiting to see a dentist to have several teeth removed. She was eating chips 2 days ago, when she suddenly developed pain around her right lower posterior tooth. She states that the gums seem very inflamed and are intermittently bleeding. She reports pain at this site only. She has been taking ibuprofen and Tylenol. The pain is worse when she eats. She denies any fevers or chills. No facial swelling. No other significant pain or swelling in her mouth She says that in the past when she had similar symptoms she was given a prescription mouthwash Medication Reconciliation Allergies: Coded Allergies: codeine (Verified Allergy, Unknown, 01/18/25) states her heart rate drops Scheduled Chlorhexidine Gluconate (Peridex), 15-30 ML PO Q8H Chlorhexidine Gluconate (Chlorhexidine Gluconate), 15 ML PO Q12H Clindamycin HCL* (Clindamycin HCL*), 1 CAP PO Q6H Clindamycin HCL* (Clindamycin HCL*), 1 CAP PO Q8H Cyclobenzaprine* (Cyclobenzaprine*), 1 TAB PO Q8H Doxylamine/Pyridoxine HCl (Diclegis Dr 10-10 mg Tablet), 2 TAB PO HS Ibuprofen (Ibuprofen), 1 TAB PO Q8H Ibuprofen (Ibuprofen), 1 TAB PO Q8H Ibuprofen (Ibuprofen), 1 TAB PO Q8H Lidocaine (Lidoderm), 1 PATCH TOP DAILY Naproxen (Naprosyn), 500 MG PO Q12H PRN PAIN Naproxen (Naproxen), 1 TAB PO Q12H Past Medical History Past Medical History: No Pertinent History Past Surgical History: no surgical history Patient History: Patient reports no known family medical history. Alcohol Use: None Drug Use: none Lives with: Family Lives In: Home Occupation: employed Review of Systems Constitutional: Denies: fever ENT: Reports: mouth pain Physical Exam Vital Signs: Temperature: 98.3, Source: Oral, Heart Rate: 110, Respiratory Ra te: 18, BP: 159/86, Pulse Oximetry: 100, Weight: 89.100 Oxygen Flow Rate: 0 Physical Exam General: This is a pleasant and overall healthy-appearing young woman HEENT: Atraumatic, oropharynx is moist Oral exam: The patient has very poor dentition with multiple broken and missing teeth. On the right lower posterior jaw, she has some area of inflammation on the gums surrounding a broken tooth. She is tender on palpation of the gums only. There is no periapical abscess. No swelling extending to the cheek or jaw or neck Heart: Regular rate, normal-appearing peripheral perfusion Lungs: normal work of breathing, normal oxygen saturation on room air Neuro: Alert and oriented Psychiatric: Calm and cooperative with exam Progress Results/Orders Results/Orders Completed Orders - DONTE BERNARD MD Ketorolac Trometh 15mg/Ml Vial (Toradol (01/18/25 07:30) Vital Signs 01/18/25 07:05 Temp 98.3 Pulse 110 Resp 18 B/P (MAP) 159/86 Pulse Ox 100 O2 Flow Rate 0 Medical Decision Making Additional information obtaine: N/A Findings na Differential Dx:Considerations: Include: Alveolar fracture, Facial Cellulitis, Periapical abscess, Peridontal abscess, Tooth Fracture Additional Comment The patient presents with dental pain. On exam, she has findings consistent with a gingivitis. No evidence to suggest dental infection or facial cellulitis. After a shared decision-making conversation, she was in agreement with chlorhexidine mouthwash only. She agreed to return if she develops worsening symptoms to suggest a dental infection requiring antibiotics. She was given home care instructions and dental follow up instructions. Departure Time of Disposition: 07:31 Disposition: HOME / SELF CARE / HOMELESS Impression: Primary Impression: Toothache Additional Impression: Gum inflammation Condition: Stable Discharge Instructions: Dental Pain Referrals: NO PRIMARY CARE PROVIDER (PCP) Prescriptions Chlorhexidine Gluconate (Chlorhexidine Gluconate) 0.12 % Mouthwash 15 ML PO Q12H for 14 Days, #473 ML 0 Refills Swish and spit Prov: DONTE BERNARD MD 01/18/25 Education Educated: Patient Educated regarding: diagnosis, treatment, need for follow up Signature Scribe Signature: na Attestation: DONTE Manzano MD Jan 18, 2025 07:15
[2025-01-18] MEDS ORDERED: CHLO473M2 PO (07:32)
[2025-01-18] MEDS: ketorolac trometh 15mg/ml vial 15 MG/ML ML IM ONE (07:37)
[2025-01-18 07:44] VITALS: BP 136/92; PULSE 110; RESP 16; O2SAT 97
== END 2025-01-18 07:47 | disposition home or self-care (01) ==
LOC: ER 07:04
DX: K08.89 Other specified disorders of teeth and supporting structures (principal); K05.10 Chronic gingivitis, plaque induced; Z88.5 Allergy status to narcotic agent
CPT/HCPCS: 96372; 99283; J1885

== ENCOUNTER 2025-02-08 08:36 | Emergency (ER) | payer MEDICAID ==
[~2025-02-08] VITALS: Ht 154.9 cm; Wt 88.8 kg
[~2025-02-08 08:36] MED LIST changes: +CHLO473M2 PO
--- NOTE | 2025-02-08 10:21 | Physician Documentation ---
History of Present Illness General Chief Complaint: Back Pain Stated Complaint: BACK PAIN Time Seen by MD: 10:18 Primary Medical Doctor: [facility] History of Present Illness Initial Comments 39-year-old female with a history of sciatica presented to the ED in view of sharp pain in her buttock and left lateral side of the left thigh. Patient states that she has a severity of 6/10 that is sharp in character with radiation to down her leg. Patient is unable to sit or stand for long. Patient does not have associated numbness or paresthesias and sees a chiropractor and is starting physical therapy. Patient denies fall or trauma. Medication Reconciliation Allergies: Coded Allergies: codeine (Verified Allergy, Unknown, 02/08/25) states her heart rate drops Scheduled Chlorhexidine Gluconate (Peridex), 15-30 ML PO Q8H Chlorhexidine Gluconate (Chlorhexidine Gluconate), 15 ML PO Q12H Clindamycin HCL* (Clindamycin HCL*), 1 CAP PO Q6H Clindamycin HCL* (Clindamycin HCL*), 1 CAP PO Q8H Cyclobenzaprine* (Cyclobenzaprine*), 1 TAB PO Q8H Doxylamine/Pyridoxine HCl (Diclegis Dr 10-10 mg Tablet), 2 TAB PO HS Ibuprofen (Ibuprofen), 1 TAB PO Q8H Ibuprofen (Ibuprofen), 1 TAB PO Q8H Ibuprofen (Ibuprofen), 1 TAB PO Q8H Lidocaine (Lidoderm), 1 PATCH TOP DAILY Naproxen (Naprosyn), 500 MG PO Q12H PRN PAIN Naproxen (Naproxen), 1 TAB PO Q12H Past Medical History Past Medical History: No Pertinent History Past Surgical History: no surgical history Other Past Surgical History: Cataract surgery of her left eye Last Menstrual Period: Jan 21, 2025 Smoking: Non-Smoker Alcohol Use: None Drug Use: none Lives with: Family Lives In: Home Occupation: employed Physical Exam Physical Exam Vital Signs: Temperature: 98.0, Source: Temporal, Heart Rate: 120, Respiratory Rate: 18, BP: 142/98, Pulse Oximetry: 99, Weight: 88.800 Oxygen Flow Rate: 0 Physical Exam General: Alert, awake, oriented, not in acute distress HEENT: PERRLA, no icterus, pallor, lymphadenopathy, carotid bruit Respiratory system: Bilateral vesicular breath sounds heard, no adventitious breath sounds CVS: S1-S2 heard, no murmurs/rubs/gallop GI: Soft, nontender, no organomegaly, no guarding/rigidity, bowel sounds present Neuro: No focal neurological deficits present Mental status exam: alert and consciousness, orientation, memory, speech - Cranial nerve test: Cranial nerves 2-12 intact - Motor system: Nutrition, Tone 3+, Power 5/5, no involuntary movements - Sensory system: Intact - Reflex testing: Biceps, triceps and knee reflexes 2+ - Cerebellar: Normal Extremities: No edema cyanosis clubbing/deformities Skin: Warm and dry Progress Results/Orders Results/Orders Orders - BOBBY LOYD RES Ketorolac Trometh 15mg/Ml Vial (Toradol (02/08/25 10:20) Vital Signs 02/08/25 09:01 Temp 98.0 Pulse 120 Resp 18 B/P (MAP) 142/98 Pulse Ox 99 O2 Flow Rate 0 Medical Decision Making Additional information obtaine: N/A Findings 39-year-old female with a history of sciatica presented with acute episodes of increased pain. Patient is being given IM Toradol 15 mg for the resolution of pain. Patient is stable for discharge to home Differential Diagnosis Sciatica, trauma, fracture Departure Disposition: HOME / SELF CARE / HOMELESS Impression: Primary Impression: Sciatica Qualified Codes: M54.32 - Sciatica, left side Referrals: NO PRIMARY CARE PROVIDER (PCP) Signature Scribe Signature: None Attestation: Document reviewed by the ED physician, created by the resident BOBBY LOYD RES Feb 08, 2025 10:21
[2025-02-08] MEDS: ketorolac trometh 15mg/ml vial 15 MG/ML ML IM ONE (10:25)
[2025-02-08 10:56] VITALS: BP 135/81; PULSE 81; RESP 16; TEMP 98.6; O2SAT 98
== END 2025-02-08 10:58 | disposition home or self-care (01) ==
LOC: ER 08:37
DX: M54.32 Sciatica, left side (principal); Z88.5 Allergy status to narcotic agent; Z98.42 Cataract extraction status, left eye
CPT/HCPCS: 96372; 99283; J1885